=== PATIENT | female | born 1995 | race Caucasian/White ===

== ENCOUNTER 2022-02-03 19:01 | Emergency (ER) | payer MEDICAID ==
[~2022-02-03] VITALS: Ht 162.6 cm; Wt 61.0 kg
[2022-02-03] MEDS ORDERED: KETOROLAC 60MG/2ML VIAL IM ONE (20:00)
[2022-02-03] MEDS ORDERED: IBUP-2028 MT (21:37)
[2022-02-03 21:50] VITALS: BP 104/62
== END 2022-02-03 22:42 | disposition home or self-care (01) ==
LOC: ER 19:01
DX: M54.59 Other low back pain (principal); M54.6 Pain in thoracic spine; R51.9 Headache, unspecified; R26.2 Difficulty in walking, not elsewhere classified; G89.11 Acute pain due to trauma; V49.49XA Driver injured in collision with other motor vehicles in traffic accident, initial encounter; Y93.89 Activity, other specified; Y92.488 Other paved roadways as the place of occurrence of the external cause
CPT/HCPCS: 72070; 72100; 81025; 96372; 99284; J1885